=== PATIENT | male | born 1955 | race Caucasian/White ===

== ENCOUNTER 2022-01-11 13:47 | Outpatient (CLI) | payer MEDICARE, BC, SELFPAY ==
[2022-01-11 17:24] LABS: Chloride* 106 mmol/L (96-114); Sodium* 141 mmol/L (135-149)
[2022-01-11 17:25] LABS: Cholesterol* 277 mg/dL (90-199); HDL Cholesterol* 44 mg/dL (>=40); LDL Cholesterol Calculated 188 mg/dL (<100); Triglycerides* 223 mg/dL (40-149)
[2022-01-11 17:27] LABS: Alanine Aminotransferase* 60 U/L (4-50); Blood Urea Nitrogen* 16 mg/dL (7-30); Carbon Dioxide* 23 mmol/L (20-32); Creatinine* 0.9 mg/dL (0.5-1.5); Estimated Glomerular Filt Rate 94.19
[2022-01-11 17:28] LABS: Calcium* 9.6 mg/dL (8.4-10.6); Glucose* 101 mg/dL (60-115)
[2022-01-11 17:57] LABS: PSA Diagnostic* 5.76 ng/mL (0.10-4.00)
== END 2022-01-11 13:48 | disposition home or self-care (01) ==
PROVIDERS: PCP Family Medicine; Visit Provider Family Medicine
DX: N40.0 Benign prostatic hyperplasia without lower urinary tract symptoms (principal); I10 Essential (primary) hypertension; E78.5 Hyperlipidemia, unspecified; F32.9 Major depressive disorder, single episode, unspecified; Z12.5 Encounter for screening for malignant neoplasm of prostate; Z12.11 Encounter for screening for malignant neoplasm of colon
CPT/HCPCS: 80048; 80061; 84153; 84460

== ENCOUNTER 2022-03-22 16:44 | Outpatient (CLI) | payer MEDICARE, BC, SELFPAY ==
--- OUTSIDE RECORDS SUMMARY | 2022-03-22 16:47 | XMS_ITS | Clinical Summary ---
:1955 Author Organization [facility] [place] [address] Care Team Providers Name Role Phone Joseph Badillo MD Primary Care Provider [phone] Allergies Active Allergy Reactions Severity Noted Date Comments Atorvastatin Myalgia 05/14/2007 Medications Medication Sig Dispensed Refills Start Date End Date Status aspirin 81 mg tablet Take 81 mg by 0 Active mouth once daily with a meal. CPAPIndications: FAYE CPAP machine 1 unit 0 12/05/2016 Active (obstructive sleep for home apnea) use,Frequency of use: Daily omeprazole (PRILOSEC) 40 Take 1 capsule 90 capsule 3 8 Active mg Delayed-Release by mouth once capsuleIndications: daily. Gastroesophageal reflux disease without esophagitis rivaroxaban (XARELTO) 20 Take 1 tablet 30 tablet 12 08/11/2018 Active mg tabletIndications: by mouth once Pulmonary embolism, daily with bilateral (HC) evening meal. citalopram (CELEXA) 20 TAKE ONE AND 45 tablet 6 03/01/2019 Active mg tabletIndications: ONE-HALF Dysthymic disorder TABLETS BY MOUTH EVERY DAY NIFEdipine (PROCARDIA Take 1 tablet 30 tablet 0 08/06/2019 Active XL) 60 mg by mouth once Extended-Release daily before a tabletIndications: meal. Hypertension oxybutynin XL (DITROPAN Take 1 tablet 90 tablet 3 05/25/2020 Active XL) 5 mg CR by mouth once tabletIndications: OAB daily. 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 GERD (gastroesophageal reflux disease) 03/30/2009 Hypertension 05/17/2007 Dysthymic disorder 05/17/2007 Hyperlipidemia 05/17/2007 Carpal tunnel syndrome 05/17/2007 Overview: Bilateral Pulmonary emboli Resolved Problems Problem Noted Date Resolved Date Acute renal failure 09/17/2010 03/10/2012 Immunizations Name Administration Dates Next Due AMB Influenza, IIV3 (Age >=3 05/24/2010 years)(Flu Clinic Only) HIB PRP-T (ActHIB,Hiberix) 04/17/2013 Influenza, IIV3 (Age 6-35 mos) 04/25/2015, 05/19/2014, 04/17 Influenza, IIV3 (Age >=3 years) 08/05/2016, 06/16/2012, 05/14, 06/29/2008, 05/14/2007, 06/02/2006, 06/03/2005 Influenza, IIV4 04/29/2018, 08/01/2016, 05/14/2015, 05/19/2014 Influenza, IIV4 (=>6mos) MDV 04/13/2017 Td (Age >=7 Years) 12/26/2009 Tdap 03/11/2010 Zoster (Zostavax-ZVL, live) 06/27/2015, 05/19/2014 Family History Medical History Relation Name Comments Lung cancer Father Hypertension Mother Hypertension Sister Relation Name Status Comments Father Mother Sister Social History Tobacco Use Types Packs/Day Years Used Date Never Smoker Smokeless Tobacco: Never Used Tobacco Cessation: Counseling Given: Yes Alcohol Use Standard Drinks/Week Comments No 0 (1 standard drink = 0.6 oz pure alcoho l) quit in about 1979 Alcohol Habits Answer Date Recorded How often do you have a drink containing alcohol? Not asked How many drinks containing alcohol do you have on a Not aske d typical day when you are drinking? How often do you have six or more drinks on one Not asked occasion? 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 Height 172.7 cm (5' 8) 08/11/2018 10:29 AM MACHINE VENEER REPAIRER Body Mass Index 30.67 08/11/2018 10:29 AM MACHINE 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 Plan of Treatment Health Maintenance Due Date Last Done Comments COVID-19 vaccine series (#1) 1955 Hepatitis C screening for age 0802/23/1973 18-79 Zoster (shingles) series for age 0208/22/2015 06/27/2015, 12/2013 50+ (2 of 3) Colonoscopy through age 75 09/12/2018 09/12/2008, 9 Depression screening for age 12+ 04/23/2019 04/23/2018, 03/2018, 01/16/2018, Additional history exists BMI (ht and wt on same day) for 08/11/2019 08/11/2018, 0712/2017, age 18+ 10/03/2016 Pneumococcal series for age 65+ (1 02/24/2020 - PCV) Tetanus booster 03/11/2020 03/11/2010, 12/26/2009 Influenza for age 65+ 03/14/2022 04/29/2018, 04/13/2017, 08/05/2016, Additional history exists Lipids for age 45-75 01/16/2023 01/16/2018, 10/03/2016, 06/27/2015, Additional history exists Tdap Completed 03/11/2010 Medical Devices Implanted Type Area Slide Maker Device Shelf Model / Identifier Expiration Serial / Lot Date Stent Prcflx [id number] [id number] - [id number] Left: BSC Urol[employer] gy 03/21/2013 [id number] / Implanted: Qty: 1 on 09/18/2010 at [facility] Ureter / [id number] Description: please see implant sheet Results Not on filefrom Last 3 Months Insurance Payer Benefit Plan / Subscriber ID Effective Phone Address T ype Group Dates 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 [id number] 2007-Pre [phone] MONIQUE ON COMP COMP sent [address] [place] [address] BLUE CROSS BLUE CROSS OF [id number] 2018-Prese [address] [facility] [place] [address] Guarantor Name Account Type Relation to Date of Phone Billing Patient Address Bony Egan Personal/Family Self 1955 [address] (Home) [place] [phone] (Work) Bony Egan Workers Comp Self 1955 [address] (Home) [place] [phone] (Work) Advance Directives Documents on File Type Date Recorded Patient Wildlife [employer] Internship Explanati on Healthcare Directive 05/05/2013 8:47 AM [facility] RE DIRECTIVE, 05/04/2013 Latest Code Status on File Code Status Date Activated Date Inactivated Comments Full Code 06/15/2012 3:16 PM 06/16/2012 4:36 PM Full Code 09/26/2010 7:16 AM 09/26/2010 1:55 PM Full Code 09/18/2010 8:26 AM 09/19/2010 5:27 PM Full Code 09/17/2010 5:19 PM 09/18/2010 8:26 AM Full Code 01/20/2010 6:06 AM 01/20/2010 3:18 PM Care Teams Inspector Wreath Relationship Specialty Start Date End Date Joseph Badillo MD PCP - General Family Practice 02/04/19 [address] [place] [phone]
[2022-03-22 17:42] LABS: Chloride* 103 mmol/L (96-114); Potassium* 4.6 mmol/L (3.6-5.1); Sodium* 140 mmol/L (135-149)
[2022-03-22 17:45] LABS: Carbon Dioxide* 23 mmol/L (20-32); Cholesterol* 169 mg/dL (90-199); Creatinine* 1.3 mg/dL (0.5-1.5); Estimated Glomerular Filt Rate 60 ml/min
[2022-03-22 17:46] LABS: Blood Urea Nitrogen* 31 mg/dL (7-30); Calcium* 9.9 mg/dL (8.4-10.6); Glucose* 77 mg/dL (60-115); HDL Cholesterol* 37 mg/dL (>=40); LDL Cholesterol Calculated 66 mg/dL (<100); Triglycerides* 331 mg/dL (40-149)
== END 2022-03-22 16:45 | disposition home or self-care (01) ==
PROVIDERS: PCP Family Medicine; Visit Provider Family Medicine
DX: R53.83 Other fatigue (principal); I10 Essential (primary) hypertension; E78.5 Hyperlipidemia, unspecified
CPT/HCPCS: 80048; 80061; 84443

== ENCOUNTER 2023-03-07 09:59 | Outpatient (CLI) | payer MEDICARE, BC, SELFPAY | END 2023-03-07 10:00 | disposition home or self-care (01) | PROVIDERS: PCP Family Medicine; Visit Provider Family Medicine | DX: Z01.818 Encounter for other preprocedural examination (principal); E78.5 Hyperlipidemia, unspecified; I10 Essential (primary) hypertension; R97.20 Elevated prostate specific antigen [PSA] | CPT/HCPCS: 80048; 80061; 84153; 84460 ==

== ENCOUNTER 2023-03-14 13:42 | Outpatient (RCR) | payer MEDICARE, BC, SELFPAY ==
--- NOTE | 2023-03-14 14:42 | PT.OPEX ---
PT [facility] Out[facility] Eval PT [facility] Outpatient Eval Start: 03/14/23 12:51 Freq: Status: Active Protocol: Document 03/14/23 12:51 STERLINGChari (Rec: 03/14/23 14:40 CLEVESUZETTE [id number]) E-signed By Alberta Collier Physical [facility] Outpatient Evaluation Insurance Information Recert Due Date 06/13/23 Insurance Name Medicare B Medical Diagnosis M17.11 R knee OA Z96.651 Presence of R artificial knee joint Treating Diagnosis M25.561 R knee pain M25.661 Stiffness of R knee Referring MD Elizalde Subjective Subjective Pt presents pre-op only for RTKA on 03/25/[address] Elizalde. Pt reports this is his first joint replacement. L knee also is giving him trouble and anticipates he will get a replacement on his L knee as well. Pt states that pain is worse with over-use. Pain has not prevented him for doing things but it does get achey at the end of the day. His knee pain has slowed him down. Takes Tylenol about 4x/ day. PLOF: IND no AD. Pt lives with spouse in split entry home with 2 steps to enter no railing. Bedroom/bathroom are on second level, rail on R side. Pt has tub shower upstairs and walk in shower downstairs, has grab bars in shower and shower chair, raised toilet seat. Pt has SPC , RW, and 4WW. 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 Elizalde. PMHx: HTN, HLD, pulmonary embolism. Pt reports B knee pain, R>L that is worse with prolonged standing and walking. Takes Tylenol 4x/ day for pain management. Pt lives in split-level home with spouse, 2 steps, no rail to enter. Bedroom/bathroom are on second level, rail on R side. Pt has tub shower upstairs and walk in shower downstairs, has grab bars in shower and shower chair, raised toilet seat. Pt has SPC, RW, and 4WW. Pt displays good strength and ROM in BLEs. Pain is the most limiting factor. Demonstrates mildly antalgic gait pattern. Pt was educated on HEP, POC, post-op precautions, pain/ swelling management, fall prevention, equipment needs, and stair training. Pt will be doing post-op OP PT at [facility] . Primary Functional Limitations Pain with functional activity Gait deficits Plan of Care Rehabilitation Potential Excellent Physical Therapy Goals In one session: 1. Pt will be IND with HEP in order to perform at home post- op IND. 2. Pt will navigate 4 steps with B rails using proper step sequencing in order to enter/ exit home safely post-op. 3. Pt will provide verbal understanding of post-op precautions in order to reduce risk of post-op complications . Coordination/Communication With Referral Source Treatment Plan/Direct Interventions Therapeutic Activities, Therapeutic Exercises Frequency/Duration 1x only Patient Will Be Discharged From Therapy Completion of LTG(s), Independent w/HEP, Independently Progressing Evaluation Billing Untimed Code Treatment Minutes 10 PT Eval No Charge No Complexity Low Certification Information Initial Certification Date 03/14/23 Ending Certification Date 06/13/23 Provider Signature Shows Agreement With POC & Medical Necessity Physician Comment/Change : Physician NPI Number #
== END 2023-07-12 23:59 | disposition home or self-care (01) ==
PROVIDERS: PCP Family Medicine; Visit Provider Orthopaedic Surgery
DX: M17.11 Unilateral primary osteoarthritis, right knee (principal); M25.561 Pain in right knee; Z96.651 Presence of right artificial knee joint; M25.661 Stiffness of right knee, not elsewhere classified; Z51.89 Encounter for other specified aftercare
CPT/HCPCS: 97161; 97530

== ENCOUNTER 2023-03-25 07:02 | Day surgery (SDC) | payer MEDICARE, BC, SELFPAY ==
[2023-03-25] VITALS (36 sets, daily range): BP systolic 97–158; BP diastolic 59–94; PULSE 55–116; RESP 12–18; TEMP 35.9–37.2; O2SAT 91–100; BMI 33.7
[2023-03-25] MEDS: ACETAMINOPHEN 500 MG TABLET 1000 MG PO ×2 (07:27→20:28)
[2023-03-25] MEDS: OXYCODONE (CR) 10 MG TAB.ER.12H PO (07:28)
[2023-03-25] MEDS: SODIUM CHLORIDE 0.9 % (FLUSH) 10 ML SYRINGE IVF (07:28)
[2023-03-25] MEDS: CELECOXIB 200 MG CAPSULE PO (07:28)
[2023-03-25] MEDS: LACTATED RINGERS 1000 ML 1,000 ML 100 ML IV ×2 (07:28→10:39)
[2023-03-25] MEDS: fentaNYL 100 MCG/2 ML inj IVP (09:04)
[2023-03-25] MEDS: MIDAZOLAM HCL 1 MG/ML inj IVP (09:04)
--- NOTE | 2023-03-25 09:13 | P.NB_ITS ---
Nerve Block Nerve Block Time Seen by Provider: 09:08 Date Seen: 03/25/23 Type of block requested by surgeon for post-operative analgesia: adductor canal Side: right Time out performed: Yes Verification of patient name: Yes Verification of date of : Yes Site marking: site marked Name of person performing procedure: Ricardo Continuous monitoring Was continuous monitoring of O2 sat, B/P, teletypesetter monitor, recorded every 15 minutes?: Yes Procedure Checklist: sterile prep, needles and gloves Ultrasound guided. Images saved: Yes Medications given in 5ml increments after negative aspiration: Ropivicaine %: 0.5 mL: 20 Needle gauge: 20 Decadron (mg): 10 Precedex (mcg): 25 Patient tolerated procedure well: Yes Additional comments: Needle noted adjacent to nerve Block Charges Block Charge (with Pro Fee): Femoral Nerve Use of Ultrasound Machine for Block: Yes- US Guidance/pain block
--- NOTE | 2023-03-25 09:13 | W.ANESCHARGE ---
Anesthesia Charges Start Date/Time Anesthesia Start Date: 03/25/23 Anesthesia Start Time: 09:29 Stop Date/Time Anesthesia Stop Date: 03/25/23 Anesthesia Stop Time: 11:36
--- NOTE | 2023-03-25 09:14 | P.NB_ITS ---
Nerve Block Nerve Block Time Seen by Provider: 09:08 Date Seen: 03/25/23 Type of block requested by surgeon for post-operative analgesia: geniculars Side: right Time out performed: Yes Verification of patient name: Yes Verification of date of : Yes Site marking: site marked Name of person performing procedure: Ricardo Continuous monitoring Was continuous monitoring of O2 sat, B/P, monitor car operator, recorded every 15 minutes?: Yes Procedure Checklist: sterile prep, needles and gloves Medications given in 5ml increments after negative aspiration: Ropivicaine %: 0.5 mL: 9 Needle gauge: 25 Patient tolerated procedure well: Yes Block Charges Block Charge (with Pro Fee): Genicular Nerve Block Use of Ultrasound Machine for Block: No
--- NOTE | 2023-03-25 09:17 | SUR.PREOP ---
TIME?OUT:?0903 PT/Gwendolyn Gonzalez RN/Dr. Ricardo MDA?VERIFICATION?OF?SURGICAL?SITE right knee,?PROCEDURE,?AND?CONSENT OBTAINED?PRIOR?TO?INVASIVE?PROCEDURE.
[2023-03-25] MEDS: CEFAZOLIN 2 GM INJ IVP (09:40)
[2023-03-25] MEDS: TRANEXAMIC ACID 100 MG/ML INJ 1000 MG IV (09:45)
--- NOTE | 2023-03-25 10:50 | CRLHL7_ITS ---
For Patients: As a result of the Cures Act, medical imaging exams and procedure reports are released immediately into your electronic medical record. You may view this report before your referring provider. If you have questions, please contact your health care provider. Indication: Postop Technique: Two views right knee Findings/Impression: Hardware from a right total knee arthroplasty is in satisfactory position. Bone alignment is normal. No sign of acute fracture. Postop changes are within normal limits. Dictated by Lan Santos MD @ 03/25/2023 12:02:52 PM (Electronically Signed)
--- NOTE | 2023-03-25 10:53 | PM.ORPRC ---
Procedure Note Date of procedure: 03/25/23 Procedure: PREOPERATIVE DIAGNOSIS: Right knee osteoarthritis POSTOPERATIVE DIAGNOSIS: Right knee osteoarthritis NAME OF OPERATION: Right total knee arthroplasty SURGEON: Calvin Elizalde MD CLINICAL UNIT COORDINATOR: JOSE RAUL Kennedy ANESTHESIA: Spinal ESTIMATED BLOOD LOSS: 0 mL COMPLICATIONS: None SPECIMENS: None DRAINS: None PREOPERATIVE ANTIBIOTICS: Ancef 2 grams IMPLANTS: 1. J&J Attune # 7 posterior stabilized femur 2. # 7 fixed-bearing tibia 3. # 7 posterior stabilized, 8 mm fixed-bearing polyethylene 4. 38 patella INDICATIONS: The patient is a 68-year-old with a longstanding history of severe, unrelenting right knee pain secondary to end-stage (grade IV) right knee osteoarthritis. Despite appropriate nonoperative management, including activity modification, anti-inflammatories, [id number]-[id number] pain medication, bracing, physical therapy, and injections they continue to have pain and disability. Operative intervention was offered. The risks, benefits and expected outcomes were discussed in detail. These included but were not limited to: Infection, bleeding, injury to blood vessel or nerve, venous thromboembolism. All questions were answered to their satisfaction. Use of an dental ceramist assistant was necessary throughout the case for patient positioning and safety, soft tissue retraction, and closure. PROCEDURE: Spinal anesthesia was administered. The patient was placed supine on the operating table. The dental ceramist assistant made sure the patient was positioned appropriately. The lower extremity was prepped and draped in the usual sterile fashion. The limb was exsanguinated with the Derian bandage. The pneumatic tourniquet was inflated to 300 mmHg. A standard anterior incision was made with the knee in flexion. Subcutaneous dissection was sharply taken through fascial layer #1. Full-thickness medial and lateral flaps were elevated. The dental ceramist assistant retracted the soft tissues and protected them throughout the case. A standard medial parapatellar approach was made. The patella was everted. The infrapatellar fat pad was preserved. The menisci and cruciate ligaments were sharply d?brided. Marginal osteophytes were d?brided with the rongeur. The drill was used to penetrate the femoral canal. The canal was aspirated and irrigated with pulse lavage. The intramedullary femoral guide was placed for a 5-degree valgus cut, removing 10 mm off the distal femur. The saw was used to make the cut. Whitesides line and the trans epicondylar axis were marked. The femoral sizing guide was pinned onto the distal femur. Three degrees of external rotation nicely parallels the transepicondylar axis. Pins were placed for posterior referencing. The four-in-one cutting guide was pinned onto the distal femur. The anterior, posterior, and chamfer cuts were made. The dental ceramist assistant protected the collateral ligaments. The box cutting guide was pinned. The box cuts were made. The boxed trial was placed and was an excellent fit. Drill holes for the lugs were made. Attention was then turned to the proximal tibia. The extramedullary tibial guide was placed for a neutral varus/valgus cut with 5 degrees of posterior slope, removing 2 mm based off the medial tibial surface. The dental ceramist assistant protected the collateral ligaments and the neurovascular bundle. The saw was used to make the cut. Trial components were placed. The knee was nicely balanced in both flexion and extension. The trial components were removed. The tray was placed in appropriate rotation, parallel to our tibial cutting pins. It was pinned by the dental ceramist assistant and the drill and the punch were used. The tray was removed. The punch was used again. We placed a bone plug in the femoral canal. Attention was then turned to the patella. Hughes patellar thickness was 24 mm. The lobster claw resection guide was used with the 9.5 mm marielle. The saw was used to make the cut. Drill holes were made by the dental ceramist assistant. The trial was placed and was an excellent fit. Cancellous surfaces were irrigated with pulse lavage and thoroughly dried by the dental ceramist assistant. We cemented the tibial component, then the femoral component. We impacted the 8 mm polyethylene onto the tibial tray. The knee was brought into full extension. We then cemented the patellar component. Excessive cement was removed. The cement was allowed to harden. The knee was taken through a range of motion and was found to be nicely balanced in both flexion and extension. The patella tracks centrally. The dental ceramist assistant did a three minute dilute Betadine solution soak. The dental ceramist assistant irrigated the wound with 3 liters of normal saline via pulse lavage. The dental ceramist assistant reapproximated the extensor mechanism with #1 Vicryl in an interrupted [id number] fashion. The dental ceramist assistant then ran the extensor mechanism with a #1 PDO Stratafix. The dental ceramist assistant closed the subcutaneous tissues with a 3-0 Stratafix and the skin with a running 3-0 Stratafix in a subcuticular fashion. Glue was used to seal the skin. The dental ceramist assistant placed a dry dressing, LUIS stocking, and Polar Care. Sponge and needle counts were correct x2. The patient tolerated the procedure well. There were no apparent complications. They were carefully transferred to the hospital bed and taken to the postanesthesia care unit in satisfactory condition. PLAN: The patient will be mobilized with physical therapy. Given the patient's history of pulmonary embolism, Xarelto will be used for DVT prophylaxis. They will be discharged to home once medically appropriate.
--- NOTE | 2023-03-25 11:37 | W.ANESCHARGE ---
Anesthesia Charges Start Date/Time Anesthesia Start Date: 03/25/23 Anesthesia Start Time: 09:29 Stop Date/Time Anesthesia Stop Date: 03/25/23 Anesthesia Stop Time: 11:36
[2023-03-25] MEDS: HYDROmorphone 0.5 mg/0.5 ml inj IVP (13:14)
[2023-03-25] MEDS: OXYCODONE 5 MG TABLET PO ×3 (15:39→21:30)
--- NOTE | 2023-03-25 15:39 | PC.NURSE ---
Patient up to floor at 1210. Alert and oriented x4, at bedside. Patient rated pain 4/10 PRN dilauded administered w/relief. Tolerating a reg diet, dangle at bedside but not up to BR yet. IV in left wrist patent. Plexi pulses, Bilateral teds, and cryocuff to op site. Dressing to right knee C/D/I
--- NOTE | 2023-03-25 16:12 | P.IMCN_ITS ---
Date of Consult Patient: [facility] Patient Consult date: 03/25/23 Requesting Physician: Orthopedics Primary Care Provider: Lan Perry MD Consult Narrative Reason for consult: h/o unprovoked PE, HTN, FAYE - post-op R TKA Narrative: Bony Egan is a 68 year old man underwent an elective right total knee arthroplasty today due to severe, symptomatic right gonarthrosis. Procedure undertaken successfully without any apparent complications. Patient underwent a local MAC with nerve blocks. He did not received general anesthesia and was not on a ventilator. Surgeon reports estimated blood loss as 0 mL. Patient indicates he is feeling well. Still does not have function of his quadriceps muscles. Pain adequately modified. Review of Systems Status of ROS: Reports: 10 or more systems reviewed and unremarkable except as noted in History and below Narrative: Denies chest heaviness, pressure, tightness, or pain. Denies syncope or near- syncope. Denies orthostasis, lightheadedness, dizziness, vertigo. Denies palpitations or chest fluttering. Denies cough, dyspnea at rest, paroxysmal nocturnal dyspnea, orthopnea. Denies edema. Denies claudication. Denies nausea vomiting. Denies abdominal pain. Bowel and bladder function are satisfactory. Denies dysuria, urgency, frequency, hematuria. Denies diarrhea or constipation. Denies dyspepsia, heartburn, dysphagia, or odynophagia. [facility] Medical History (Updated 03/25/23 @ 16:21 by Burt Black MD) History of pulmonary embolism (08/08/18) ?Z86.711 - Personal history of pulmonary embolism (ICD-10) Osteoarthritis of right knee ?M17.11 - Unilateral primary osteoarthritis, right knee (ICD-10) Major depression, recurrent ?F33.9 - Major depressive disorder, recurrent, unspecified (ICD-10) Stricture of urethral meatus in male (11/04/07) ?N35.911 - Unspecified urethral stricture, male, meatal (ICD-10) Overactive bladder ?N32.81 - Overactive bladder (ICD-10) Obstructive sleep apnea syndrome ?G47.33 - Obstructive sleep apnea (adult) (pediatric) (ICD-10) Incidental pulmonary nodule (08/08/18) ?R91.1 - Solitary pulmonary nodule (ICD-10) Hypertension ?I10 - Essential (primary) hypertension (ICD-10) Hyperlipidemia ?E78.5 - Hyperlipidemia, unspecified (ICD-10) Glaucoma of right eye (2019) ?H40.9 - Unspecified glaucoma (ICD-10) Gastroesophageal reflux disease ?K21.9 - Gastro-esophageal reflux disease without esophagitis (ICD-10) Calculus of kidney (08/24/08) ?N20.0 - Calculus of kidney (ICD-10) Bilateral carpal tunnel syndrome (2006) ?G56.03 - Carpal tunnel syndrome, bilateral upper limbs (ICD-10) Benign prostatic hyperplasia ?N40.0 - Benign prostatic hyperplasia without lower urinary tract symptoms (ICD-10) Surgical History (Updated 03/25/23 @ 16:21 by Burt Black MD) History of tonsillectomy and adenoidectomy ?Z90.89 - Acquired absence of other organs (ICD-10) History of lumbar discectomy (10/17/09) ?Z98.890 - Other specified postprocedural states (ICD-10) History of lithotripsy (08/24/08) ?Z98.890 - Other specified postprocedural states (ICD-10) History of appendectomy (06/04/79) ?Z90.49 - Acquired absence of other specified parts of digestive tract (ICD- 10) Family History Sister Stroke Father Lung cancer Social History Narrative: , remarried, two sons, non-smoker, no EtOH, [place] home What is your current living situation?: I presently have a place to live Problems where you live: no known problems In the past 12 months, utilities in danger of being shut off: no In the past 12 mos, have been you worried that your food would run out before you had money to buy more?: never true In the past 12 mos, the food you bought just didn't last and you didn't have money to buy more?: never true Smoking Status: Never smoker Do you use any of these nicotine containing products: None How often do you have a drink containing alcohol: never AUDIT-C Alcohol total score: 0 Non-prescribed substance use: denies use Caffeine: No How often does anyone, including family, friends and others, physically hurt you : never How often does anyone, including family, friends and others, insult or talk down to you: never How often does anyone, including family, friends and others, threaten you with harm: never How often does anyone, including family, friends and others, scream or curse at you: never Little interest or pleasure in doing things: not at all Feeling down, depressed, or hopeless: not at all service: No Meds Home Medications and Allergies Home Medications Medication Instructions Recorded Confirmed Type aspirin 81 mg chewable tablet 1 tab PO DAILY 01/11/22 03/25/23 History Allergies Allergy/AdvReac Type Severity Reaction Status Date / Time TRISTON Inhibitors AdvReac Mild Cough Verified 03/25/23 07:30 Exam Narrative: Exam Narrative: I examine him in his hospital room. He appears comfortable and in no acute distress. Vision and hearing are grossly normal. Alert and oriented to self, place, time, situation. Friendly, articulate, cooperative. Mood and affect are congruent. Neck is supple. Midline trachea. No JVD or hepatojugular reflux. Lungs are clear to auscultation without wheezing, rhonchi, or rales. Chest wall excursions are full. No CVA tenderness. Heart tones with regular rhythm, normal S1-S2, without murmur, gallop, rub. PMI not laterally displaced. Abdomen with active bowel sounds, soft, nontender. No rebound or guarding. No hepatosplenomegaly. Extremities without edema. Capillary refill less than 3 seconds in upper and lower extremities. No focal motor neurologic deficits. Independent transfer, station. Still not able to urinate postop. Const: Vital Signs, click to edit/add: Vital Signs - 24 hr 03/25/23 07:35 03/25/23 09:04 03/25/23 09:10 Temperature 98.9 F Pulse Rate 61 63 64 Pulse Rate [Left P ulse Oximeter] Respiratory Rate 16 16 14 Blood Pressure 158/84 H 156/92 H 132/87 Blood Pressure [Ri ght Arm] Pulse Oximetry 98 99 94 Oxygen Delivery Me thod Room Air Nasal Cannula Nasal Cannula Oxygen Flow Rate 2 2 03/25/23 11:32 03/25/23 11:34 03/25/23 11:35 Temperature 97.5 F L Pulse Rate 74 68 66 Pulse Rate [Left P ulse Oximeter] Respiratory Rate Blood Pressure 97/59 L Blood Pressure [Ri ght Arm] Pulse Oximetry 93 94 94 Oxygen Delivery Me thod Room Air Oxygen Flow Rate 03/25/23 11:36 03/25/23 11:37 03/25/23 11:38 Temperature Pulse Rate 65 62 65 Pulse Rate [Left P ulse Oximeter] Respiratory Rate Blood Pressure Blood Pressure [Ri ght Arm] Pulse Oximetry 93 93 93 Oxygen Delivery Me thod Oxygen Flow Rate 03/25/23 11:39 03/25/23 11:40 03/25/23 11:41 Temperature Pulse Rate 65 66 63 Pulse Rate [Left P ulse Oximeter] Respiratory Rate Blood Pressure Blood Pressure [Ri ght Arm] Pulse Oximetry 92 93 93 Oxygen Delivery Me thod Oxygen Flow Rate 03/25/23 11:42 03/25/23 11:43 03/25/23 11:44 Temperature Pulse Rate 59 L 61 60 Pulse Rate [Left P ulse Oximeter] Respiratory Rate Blood Pressure 98/59 L Blood Pressure [Ri ght Arm] Pulse Oximetry 93 92 92 Oxygen Delivery Me thod Oxygen Flow Rate 03/25/23 11:45 03/25/23 11:46 03/25/23 11:47 Temperature Pulse Rate 64 61 61 Pulse Rate [Left P ulse Oximeter] Respiratory Rate Blood Pressure 97/66 Blood Pressure [Ri ght Arm] Pulse Oximetry 91 93 95 Oxygen Delivery Me thod Room Air Oxygen Flow Rate 03/25/23 11:48 03/25/23 11:50 03/25/23 11:55 Temperature Pulse Rate 61 62 61 Pulse Rate [Left P ulse Oximeter] Respiratory Rate 16 12 Blood Pressure 117/75 122/80 Blood Pressure [Ri ght Arm] Pulse Oximetry 94 94 97 Oxygen Delivery Me thod Room Air Room Air Oxygen Flow Rate 03/25/23 12:00 03/25/23 12:10 03/25/23 12:15 Temperature 96.9 F L 96.9 F L Pulse Rate 65 Pulse Rate [Left P ulse Oximeter] 55 L 55 L Respiratory Rate 12 16 16 Blood Pressure 123/82 Blood Pressure [Ri ght Arm] 123/73 123/73 Pulse Oximetry 98 100 Oxygen Delivery Me thod Room Air Room Air Room Air Oxygen Flow Rate 03/25/23 12:30 03/25/23 12:45 03/25/23 12:55 Temperature 96.6 F L 96.9 F L 96.9 F L Pulse Rate Pulse Rate [Left P ulse Oximeter] 56 L 56 L 55 L Respiratory Rate 16 16 16 Blood Pressure Blood Pressure [Ri ght Arm] 126/76 127/81 123/73 Pulse Oximetry 98 97 95 Oxygen Delivery Me thod Room Air Room Air Room Air Oxygen Flow Rate 03/25/23 13:00 03/25/23 13:30 03/25/23 13:57 Temperature 96.9 F L 96.9 F L 96.9 F L Pulse Rate 55 L Pulse Rate [Left P ulse Oximeter] 58 L 66 Respiratory Rate 16 16 16 Blood Pressure Blood Pressure [Ri ght Arm] 134/81 141/86 H 123/73 Pulse Oximetry 98 98 Oxygen Delivery Me thod Room Air Room Air Room Air Oxygen Flow Rate 03/25/23 14:00 03/25/23 15:00 Temperature 96.9 F L 97.3 F L Pulse Rate Pulse Rate [Left P ulse Oximeter] 66 64 Respiratory Rate 16 18 Blood Pressure Blood Pressure [Ri ght Arm] 132/81 143/84 H Pulse Oximetry 98 98 Oxygen Delivery Me thod Room Air Room Air Oxygen Flow Rate Documenting provider has reviewed patient's vital signs: yes Assessment and Plan Assessment and plan (1) Osteoarthritis of right knee: Problem comment: End-stage Status: Acute (2) Status post total right knee replacement: Problem comment: 03/25/2023, Dr. Elizalde, [place], [place]. Status: Acute (3) Osteoarthritis of left knee: Status: Acute (4) Major depression, recurrent: Status: Acute (5) Glaucoma of right eye: Status: Acute (6) Gastroesophageal reflux disease: Status: Acute (7) Bilateral carpal tunnel syndrome: Status: Acute (8) Benign prostatic hyperplasia: Status: Acute (9) Hyperlipidemia: Status: Acute (10) Hypertension: Status: Acute (11) Obstructive sleep apnea syndrome: Problem comment: On CPAP Status: Acute (12) History of pulmonary embolism: Problem comment: Unprovoked, while working - occurred about 2018. Tx with 6 months anticoagulant. Status: Acute (13) Overactive bladder: Status: Acute Plan 1. Reviewed impression with patient and . Answered their questions. Hospitalist service will follow patient while in hospital as warranted. 2. Agree with perioperative antibiotic prophylaxis. 3. With high risk procedure and his high risk status given his history of unprovoked pulmonary embolism roughly 5 years ago, this is someone who will require rivaroxaban therapy for a minimum of 14 days. May stop it at 14 days if he is fully ambulatory at that time. Continue with rivaroxaban venous thromboembolism prophylaxis to a maximum of 35 days, or until fully ambulatory, whichever is less. 4. Continue with other supportive medications 5. Completed the patient's hospitalist portion of the discharge orders. 6. Follow up with Orthopedic surgery and Physical and Occupational therapy as directed by Orthopedic surgery. 7. Answered patient's questions and his 's questions to their satisfaction.
[2023-03-25] MEDS: CEFAZOLIN 2 GM in 0.9 % SODIUM CHLORIDE Mini-bag 100 ML IVPB (17:45)
--- NOTE | 2023-03-25 19:20 | PC.NURSE ---
Patient buckling when ambulating. Stand pivot to bedside commode with walker, gait belt and assist of two. Tolerating regular diet. Pain between 3-5/10. PRN oxycodone given at 1539 and 1915. Patient not voiding on own. Attempted to void in urinal x3 and bedside commode once. At 1700 bladder scanner showed 559mL urine. Patient reported bladder discomfort and requested straight cath before eating supper. 750mL urine drained via straight cath. He reported feeling relief.
[2023-03-25] MEDS: SENNOSIDES 1 TAB TABLET 2 TAB PO (20:33)
--- NOTE | 2023-03-25 23:35 | PC.NURSE ---
End of shift nursing note, care provided from [id number]: Pt alert and oriented, pleasant and cooperative. Vitals stable, on RA. C/o 4-5/10 pain to R knee, scheduled Tylenol and PRN Oxycodone 10mg admin. Pt tolerating diet, drinking PO fluids. IV to L hand flushed and saline locked. Pt req Ax2 w/ walked and gaitbelt to get to commode d/t pt's R knee buckling when standing. Pt voided at end of shift, partial incontinence, unable to measure, pt states relief with void. Cryo cuff to R knee, refilled this evening. Pulses intact. Dressing to R knee CDI. Pt has call light within reach and able to use appropriately.
[2023-03-26] MEDS: OXYCODONE 5 MG TABLET PO ×3 (01:09→08:21)
[2023-03-26] MEDS: CEFAZOLIN 2 GM in 0.9 % SODIUM CHLORIDE Mini-bag 100 ML IVPB (01:10)
[2023-03-26] MEDS: ACETAMINOPHEN 500 MG TABLET 1000 MG PO ×2 (01:17→08:20)
[2023-03-26 03:00] VITALS: BP 134/84; PULSE 93; RESP 16; TEMP 37.1; O2SAT 94
--- NOTE | 2023-03-26 06:01 | PC.NURSE ---
Shift note: Pt has been up to bedside commode and used urinal. Able urinate about 450mls tonight. Alert and oriented. Tolerated regular diet without any symptoms. Vitally stable Pain has been rated between 4 and 10. CMS in the right leg intact, moderate weakness observed. Dressing clean and dry. Pt used CPAP at night. Able to sleep well.
[2023-03-26] MEDS: OMEPRAZOLE 20 MG CAPSULE DR 40 MG PO (06:40)
[2023-03-26 06:48] LABS: Basophils Percent Auto 0.1 % (0.0-3.0); Hematocrit 39.8 % (37.0-53.0); Hemoglobin* 13.7 gm/dL (13.5-17.5); Immature Granulocytes Pct Auto 0.2 %; Lymphocytes Percent Auto 11.7 % (20-44); Mean Corpuscular HGB Conc 34 gm/dL (32-36); Mean Corpuscular Hemoglobin 30 pg (26-34); Mean Corpuscular Volume 88 fL (80-100); Monocytes Percent Auto 6.4 % (0.0-11.0); Neutrophils Percent Auto 81.6 % (42.0-72.0); Platelet Count* 271 K/uL (140-440); Red Blood Count 4.51 m/uL (4.30-5.90); White Blood Count* 17.62 K/uL (4.50-11.00)
[2023-03-26 07:03] LABS: Sodium* 139 mmol/L (135-149)
[2023-03-26 07:05] LABS: INR 1.06 (0.91-1.10); Prothrombin Time 14.4 Seconds
[2023-03-26 07:06] LABS: Blood Urea Nitrogen* 27 mg/dL (7-30); Creatinine* 1.1 mg/dL (0.5-1.5); Est. Creatinine Clearance* 62.18; Estimated Glomerular Filt Rate 73 ml/min
[2023-03-26 07:07] LABS: Slide Review Reflex No
[2023-03-26 07:34] VITALS: BP 139/91; PULSE 69; RESP 18; TEMP 36.7; O2SAT 98
[2023-03-26] MEDS: hydroCHLOROthiazide 25 MG TABLET PO (08:21)
[2023-03-26] MEDS: ATORVASTATIN 10 MG TABLET 20 MG PO (08:21)
[2023-03-26] MEDS: RIVAROXABAN 10 MG TABLET PO (08:21)
[2023-03-26] MEDS: LOSARTAN POTASSIUM 50 MG TABLET 100 MG PO (08:22)
[2023-03-26] MEDS: AMLODIPINE 5 MG TABLET PO (08:22)
[2023-03-26] MEDS: SENNOSIDES 1 TAB TABLET 2 TAB PO (08:22)
--- NOTE | 2023-03-26 10:01 | P.ORPN_ITS ---
Subjective Subjective Time Seen by Provider: 07:30 Date Seen: 03/26/23 Principal diagnosis: Status post right knee replacement Interval history: Bony is comfortable this morning. His knee was buckling yesterday. He can tell he has improvement, have however has not been up and walking except to the bedside commode. He also has had urinary retention which is resolving as well. He has a history of pulmonary embolism in 2019. Ortho Exam Narrative Exam Narrative: Alert and oriented x3. Patient is in no acute distress. Converses without labored breathing. Hearing is grossly intact. He is comfortable. Examination of the right lower extremity shows the dressing is intact. Mild effusion. Mild soft tissue edema about the right knee. Bilateral calves are soft and nontender. No foot drop. Quad strength tested in his bed lying down this morning shows good quad strength. He is able to straight leg raise. He is able to force his knee into the bed with quad contraction. Const Vital Signs, click to edit/add: Vital Signs - 24 hr 03/25/23 11:32 03/25/23 11:34 03/25/23 11:35 Temperature 97.5 F L Pulse Rate 74 68 66 Pulse Rate [Left Pulse Oximeter] Respiratory Rate Blood Pressure 97/59 L Blood Pressure [Right Arm] Pulse Oximetry 93 94 94 Oxygen Delivery Method Room Air 03/25/23 11:36 03/25/23 11:37 03/25/23 11:38 Temperature Pulse Rate 65 62 65 Pulse Rate [Left Pulse Oximeter] Respiratory Rate Blood Pressure Blood Pressure [Right Arm] Pulse Oximetry 93 93 93 Oxygen Delivery Method 03/25/23 11:39 03/25/23 11:40 03/25/23 11:41 Temperature Pulse Rate 65 66 63 Pulse Rate [Left Pulse Oximeter] Respiratory Rate Blood Pressure Blood Pressure [Right Arm] Pulse Oximetry 92 93 93 Oxygen Delivery Method 03/25/23 11:42 03/25/23 11:43 03/25/23 11:44 Temperature Pulse Rate 59 L 61 60 Pulse Rate [Left Pulse Oximeter] Respiratory Rate Blood Pressure 98/59 L Blood Pressure [Right Arm] Pulse Oximetry 93 92 92 Oxygen Delivery Method 03/25/23 11:45 03/25/23 11:46 03/25/23 11:47 Temperature Pulse Rate 64 61 61 Pulse Rate [Left Pulse Oximeter] Respiratory Rate Blood Pressure 97/66 Blood Pressure [Right Arm] Pulse Oximetry 91 93 95 Oxygen Delivery Method Room Air 03/25/23 11:48 03/25/23 11:50 03/25/23 11:55 Temperature Pulse Rate 61 62 61 Pulse Rate [Left Pulse Oximeter] Respiratory Rate 16 12 Blood Pressure 117/75 122/80 Blood Pressure [Right Arm] Pulse Oximetry 94 94 97 Oxygen Delivery Method Room Air Room Air 03/25/23 12:00 03/25/23 12:10 03/25/23 12:15 Temperature 96.9 F L 96.9 F L Pulse Rate 65 Pulse Rate [Left Pulse Oximeter] 55 L 55 L Respiratory Rate 12 16 16 Blood Pressure 123/82 Blood Pressure [Right Arm] 123/73 123/73 Pulse Oximetry 98 100 Oxygen Delivery Method Room Air Room Air Room Air 03/25/23 12:30 03/25/23 12:45 03/25/23 12:55 Temperature 96.6 F L 96.9 F L 96.9 F L Pulse Rate Pulse Rate [Left Pulse Oximeter] 56 L 56 L 55 L Respiratory Rate 16 16 16 Blood Pressure Blood Pressure [Right Arm] 126/76 127/81 123/73 Pulse Oximetry 98 97 95 Oxygen Delivery Method Room Air Room Air Room Air 03/25/23 13:00 03/25/23 13:30 03/25/23 13:57 Temperature 96.9 F L 96.9 F L 96.9 F L Pulse Rate 55 L Pulse Rate [Left Pulse Oximeter] 58 L 66 Respiratory Rate 16 16 16 Blood Pressure Blood Pressure [Right Arm] 134/81 141/86 H 123/73 Pulse Oximetry 98 98 Oxygen Delivery Method Room Air Room Air Room Air 03/25/23 14:00 03/25/23 15:00 03/25/23 15:00 Temperature 96.9 F L 97.3 F L Pulse Rate Pulse Rate [Left Pulse Oximeter] 66 64 Respiratory Rate 16 18 Blood Pressure Blood Pressure [Right Arm] 132/81 143/84 H Pulse Oximetry 98 98 97 Oxygen Delivery Method Room Air Room Air 03/25/23 16:00 03/25/23 17:00 03/25/23 18:00 Temperature 97.5 F L 98.1 F Pulse Rate Pulse Rate [Left Pulse Oximeter] 76 86 103 H Respiratory Rate 18 16 16 Blood Pressure Blood Pressure [Right Arm] 139/81 145/90 H 152/93 H Pulse Oximetry 97 96 98 Oxygen Delivery Method Room Air Room Air Room Air 03/25/23 23:00 03/25/23 23:00 03/25/23 23:00 Temperature 98.9 F Pulse Rate Pulse Rate [Left Pulse Oximeter] 116 H 114 H Respiratory Rate 16 Blood Pressure Blood Pressure [Right Arm] 122/94 H Pulse Oximetry 96 96 Oxygen Delivery Method Room Air 03/26/23 03:00 03/26/23 07:34 03/26/23 07:34 Temperature 98.7 F 98.0 F Pulse Rate Pulse Rate [Left Pulse Oximeter] 93 69 Respiratory Rate 16 18 Blood Pressure Blood Pressure [Right Arm] 134/84 139/91 H Pulse Oximetry 94 98 98 Oxygen Delivery Method Room Air Room Air Assessment and Plan Assessment and plan (1) Status post total right knee replacement: Problem details: 03/25/2023, Dr. Elizalde, [place], [place]. Status: Acute Assessment and Plan: Plan for discharge is today to home if they meet discharge criteria. Physical therapy to mobilize patient today and further evaluate quad functioning. DVT prophylaxis includes Xarelto 10 mg for 35 days, Godwin stockings x1 month may remove for 1 hr per day, frequent ambulation. Hospitalist suggest at least 14 days of Xarelto. His PEs were unprovoked, therefore we will plan 35 days of Xarelto. Remove dressing in 1 week. Observe wound and phone Orthopedics with any questions or concerns Return to clinic in 1 week for a wound check Return to clinic in 6 weeks with surgeon Minimize narcotic use. Wean off and discontinue soon as possible. Activities as tolerated. No strenuous activity. Outpatient physical therapy as scheduled. Ice and elevate the operative extremity. No restriction on ice. (2) Osteoarthritis of left knee: Status: Acute (3) Major depression, recurrent: Status: Acute (4) Glaucoma of right eye: Status: Acute (5) Gastroesophageal reflux disease: Status: Acute (6) Bilateral carpal tunnel syndrome: Status: Acute (7) Benign prostatic hyperplasia: Status: Acute (8) Hyperlipidemia: Status: Acute (9) Hypertension: Status: Acute (10) Obstructive sleep apnea syndrome: Problem details: On CPAP Status: Acute (11) History of pulmonary embolism: Problem details: Unprovoked, while working - occurred about 2017. Tx with 6 months anticoagulant. Status: Acute (12) Overactive bladder: Status: Acute
--- NOTE | 2023-03-26 11:53 | PC.NURSE ---
Pt alert and oriented. Pt's dressing dry and intact. Pt had pain ranging from 0-3. Pt discharging home with .
== END 2023-03-26 11:36 | disposition home or self-care (01) ==
LOC: OR 07:04 → MEDSURG 07:06
PROVIDERS: PCP Family Medicine; Visit Provider Orthopaedic Surgery
PROC: (CPT 27447; principal; 2023-03-25 09:00)
DX: M17.11 Unilateral primary osteoarthritis, right knee (principal); G89.18 Other acute postprocedural pain; I10 Essential (primary) hypertension; G47.33 Obstructive sleep apnea (adult) (pediatric); Z86.711 Personal history of pulmonary embolism; N32.81 Overactive bladder; F33.9 Major depressive disorder, recurrent, unspecified
CPT/HCPCS: 27447; 01402; 36415; 51702; 51798; 64447; 64454; 73560; 76942; 82565; 84132; 84295; 84520; 85025; 85610; 97110; 97116; 97161; 97165; 97530; 97535; A9270; C1776; J0690; J1100; J1170; J2250; J2405; J2704; J2795; J3010; J7120

== ENCOUNTER 2023-06-30 13:03 | Outpatient (CLI) | payer MEDICARE, BC, SELFPAY ==
[2023-06-30 15:31] LABS: C Reactive Protein* 0.7 mg/dL (0.5-1.0)
[2023-06-30 16:00] LABS: Mononuclear WBC Body Fluid* 93 %; Polynuclear WBC Body Fluid* 7 %; RBC, Body Fluid* 6000 Cells/uL; WBC, Body Fluid* 330 Cells/uL
[2023-06-30 16:12] LABS: BF Color Xanthochromic; BF Total Volume* 12
[2023-06-30 16:13] LABS: BF Clarity* Slightly Cloudy
== END 2023-06-30 13:04 | disposition home or self-care (01) ==
PROVIDERS: PCP Family Medicine; Visit Provider Physician Assistant
DX: M25.461 Effusion, right knee (principal)
CPT/HCPCS: 85025; 85651; 86140; 86141; 87070; 87075; 87205; 89051; 89060

== ENCOUNTER 2023-07-24 10:18 | Outpatient (CLI) | payer MEDICARE, BC, SELFPAY ==
--- OUTSIDE RECORDS SUMMARY | 2023-07-24 10:26 | XMS_ITS | Clinical Summary ---
Author Name Unknown Organization [employer] [facility] Address [place], [place] [address] Care Team Providers Care Terminologist Name Role Phone Joseph Badillo MD Primary Care Provider Allergies Active Allergy Reactions Criticality Noted Date Comments Atorvastatin Myalgia 05/14/2007 Medications Medication Sig Dispensed Refills Start Date End Date Status aspirin 81 mg tablet Take 81 mg by mouth once daily with a meal. 0 Active CPAPIndications:FAYE (obstructive sleep apnea) CPAP machine for home use,Frequency of use: Daily 1 unit 0 12/05/2016 Active omeprazole (PRILOSEC) 40 mg Delayed-Release capsuleIndications:Ga stroesophageal reflux disease without esophagitis Take 1 capsule by mouth once daily. 90 capsule 3 06/04/2018 Active rivaroxaban (XARELTO) 20 mg tabletIndications:Pul monary embolism, bilateral (HC) Take 1 tablet by mouth once daily with evening meal. 30 tablet 12 08/11/2018 Active citalopram (CELEXA) 20 mg tabletIndications:Dys thymic disorder TAKE ONE AND ONE-HALF TABLETS BY MOUTH EVERY DAY 45 tablet 6 03/01/2019 Active NIFEdipine (PROCARDIA XL) 60 mg Extended-Release tabletIndications:Hyp ertension Take 1 tablet by mouth once daily before a meal. 30 tablet 0 08/06/2019 Active oxybutynin XL (DITROPAN XL) 5 mg CR tabletIndications:OAB (overactive bladder) Take 1 tablet by mouth once daily. 90 tablet 3 05/25/2020 Active Active Problems Problem Noted Date Diagnosed Date Lung nodule 07/14/2018 Chest pain with moderate risk of acute coronary syndrome 06/15/2012 Obstructive sleep apnea 03/15/2012 Nephrolithiasis 09/17/2010 Lumbar disc herniation with radiculopathy 2009 GERD (gastroesophageal reflux disease) 9 Hypertension 05/17/2007 Dysthymic disorder 05/17/2007 Hyperlipidemia 05/17/2007 Carpal tunnel syndrome 05/17/2007 Overview: Bilateral Pulmonary emboli Resolved Problems Problem Noted Date Diagnosed Date Resolved Date Acute renal failure 09/17/2010 03/10/20 12 Encounters Date Type Department Care Team Description 07/01/2023 Lab Requisition [facility] [phone] Unknown, Doctor from Last 3 Months Immunizations Name Administration Dates Next Due AMB Influenza, IIV3 (Age >=3 years)(Flu Clinic Only) 05/24/2010 HIB PRP-T (ActHIB,Hiberix) 04/17/2013 Influenza, IIV3 (Age 6-35 mos) 04/25/2015,2013,04/17/2013 Influenza, IIV3 (Age >=3 years) 08/05/19 17,06/16/2012,05/24/2010, 8,05/14/2007,06/02/2006,06/03/2005 Influenza, IIV4 04/29/2018, 7,05/14/2015, 4 Influenza, IIV4 (=>6mos) MDV 04/13/2017 Td (Age >=7 Years) 12/26/2009 Tdap 03/11/2010 Zoster (Zostavax-ZVL, live) 06/27/2015, 4 Family History Medical History Relation Name Comments Lung cancer Father Hypertension Mother Hypertension Sister Relation Name Status Comments Father Mother Sister Social History Tobacco Use Types Packs/Day Years Used Date Smoking Tobacco: Never Smokeless Tobacco: Never Tobacco Cessation:Counseling Given: Yes Alcohol Use Standard Drinks/Week Comments No 0 (1 standard drink = 0.6 oz pur e alcohol) quit in about 1979 PHQ-2 Answer Date Recorded PHQ-2 Score 0 09/12/2018 Sex and Gender Information Value Date Recorded Sex Assigned at Not on file Gender Identity Not on file Sexual Orientation Not on file Obstetrics History Last Filed Vital Signs Vital Sign Reading Time Taken Comments Blood Pressure 118/68 08/11/2018 10:29 AM COMPLIANCE NURSE Pulse 72 08/11/2018 10:29 AM COMPLIANCE NURSE Temperature 36.1 ??C (97 ??F) 08/11/2018 10: 29 AM COMPLIANCE NURSE Respiratory Rate 20 08/11/2018 10:2 9 AM COMPLIANCE NURSE Oxygen Saturation 98% 08/11/2018 10: 29 AM COMPLIANCE NURSE Inhaled Oxygen Concentration - - Weight 91.5 kg (201 lb 11.2 oz) 019 10:29 AM COMPLIANCE NURSE Height 172.7 cm (5' 8) 08/11/2018 10:2 9 AM COMPLIANCE NURSE Body Mass Index 30.67 08/11/2018 10:29 AM COMPLIANCE NURSE Plan of Treatment Health Maintenance Due Date Last Done Comments COVID-19 vaccine series (#1) 1955 Hepatitis C screening for ag e 18-79 1973 Zoster (shingles) series for age 50+ (2 of 3) 08/22/2015 06/27/2015, 05/19/2014 Colonoscopy through age 75 09/12/2018 09/12/2008, Depression screening for age 12+ 04/23/2019 04/23/2018, 02/19/2018, 01/16/2018, Additional history exists BMI (ht and wt on same day) for age 18+ 08/11/2019 08/11/2018, 01/16/2018, 10/03/2016 Pneumococcal series for age 65+ (1 of 1 - PCV) 02/24/2020 Tetanus booster 03/11/2020 03/11/2010, 12/26/2009 Lipids for age 45-75 01/16/2023 01/16/2018, 10/03/2016, 06/27/2015, Additional history exists Influenza for age 65+ 03/14/2023 04/29/2018 , 04/13/2017, 08/05/2016, Additional history exists Tdap Completed 03/11/2010 Medical Devices Implanted Type Area Chartered Financial Analyst Device Identifier Shelf Expiration Date Model / Serial / Lot Stent Prcflx [id number] Hydpls - [id number] Implanted:Qty: 1 on 09/18/2010 at [facility] Left: Ureter BS Urology 03/21/2013 [id number] / / [id number] Description:please see impla nt sheet Procedures Procedure Name Priority Date/Time Associated Diagnosis Comments CRYSTAL ID BODY FLUID NO URINE Routine 06/30/2023 1:38 PM COMPLIANCE NURSE from Last 3 Months Results * CRYSTAL ID BODY FLUID NO URINE (06/30/2023 1:38 PM COMPLIANCE NURSE) MONOSODIUM URATES None Seen None Seen, Present, Not Present 07/02/2023 8:23 AM COMPLIANCE NURSE [facility] CALCIUM PYROPHOSPHATES None Seen None Seen, Present, Not Present 07/02/2023 8:23 AM COMPLIANCE NURSE [facility] OTHER CRYSTALS 07/02/2023 8:23 AM COMPLIANCE NURSE [facility] SPECIMEN SOURCE Body fluid 07/02/2023 8:23 AM COMPLIANCE NURSE [facility] Body Fluid BODY FLUID SPECIMEN / Unknown Client Collect / Unknown 06/30/2023 1:38 PM COMPLIANCE NURSE 07/01/2023 3:43 PM COMPLIANCE NURSE Doctor Unknown BODY FLUID [facility] [address] 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 Healthcare Directive 05/05/2013 8:47 AM H EALTHCARE DIRECTIVE, 05/04/2013 Latest Code Status on File Code Status Date Activated Date Inactivated Comments Full Code 06/15/2012 3:16 PM 06/16/2012 4:36 PM Code Status History Code Status Date Activated Date Inactivated Comments Full Code 09/26/2010 7:16 AM 09/26/2010 1:55 PM Full Code 09/18/2010 8:26 AM 09/19/2010 5:27 PM Full Code 09/17/2010 5:19 PM 09/18/2010 8:26 AM Full Code 01/20/2010 6:06 AM 01/20/2010 3:18 PM Care Teams Terminologist Relationship Specialty Start Date End Date Joseph Badillo MD [address] [facility] [place] [id number] PCP - General Family Practice 02/04/19
[2023-07-24 15:19] LABS: SARS PCR* Negative SARS-CoV-2 (Negative)
== END 2023-07-24 10:19 | disposition home or self-care (01) ==
PROVIDERS: PCP Family Medicine; Visit Provider Family Medicine
DX: J02.9 Acute pharyngitis, unspecified (principal)
CPT/HCPCS: 87635

== ENCOUNTER 2024-04-12 08:16 | Outpatient (CLI) | payer MEDICARE, BC, SELFPAY ==
--- OUTSIDE RECORDS SUMMARY | 2024-04-12 08:21 | XMS_ITS | Clinical Summary ---
Author Organization [employer] [facility] Address [place], [place] [address] Care Team Providers Care As400 Operator Name Role Phone Joseph Badillo MD Primary Care Provider Allergies Active Allergy Reactions Criticality Noted Date Comments Atorvastatin Myalgia 05/14/2007 Medications Medication Sig Dispensed Refills Start Date End Date Status aspirin 81 mg tablet Take 81 mg by mouth once daily with a meal. Active CPAPIndications:FAYE (obstructive sleep apnea) CPAP machine for home use,Frequency of use: Daily 1 unit 12/05/2016 Active omeprazole (PRILOSEC) 40 mg Delayed-Release [...] once daily before a meal. 30 tablet 08/06/2019 Active oxybutynin XL (DITROPAN XL) 5 [...] 05/17/2007 Hyperlipidemia 05/17/2007 Carpal tunnel syndrome 05/17/2007 Overview (05/17/2007): Bilateral Pulmonary emboli Resolved Problems Problem Noted Date Diagnosed Date Resolved Date Acute renal failure 09/17/2010 03/10/20 12 Immunizations Name Administration Dates Next Due AMB [...] Comments Blood Pressure 118/68 08/11/2018 10:29 AM ANIMAL TECH Pulse 72 08/11/2018 10:29 AM ANIMAL TECH Temperature 36.1 ??C (97 ??F) 08/11/2018 10: 29 AM ANIMAL TECH Respiratory Rate 20 08/11/2018 10:2 9 AM ANIMAL TECH Oxygen Saturation 98% 08/11/2018 10: 29 AM ANIMAL TECH Inhaled Oxygen Concentration - - Weight 91.5 kg (201 lb 11.2 oz) 019 10:29 AM ANIMAL TECH Height 172.7 cm (5' 8) 08/11/2018 10:2 9 AM ANIMAL TECH Body Mass Index 30.67 08/11/2018 10:29 AM ANIMAL TECH Plan of Treatment Health Maintenance Due Date Last Done Comments Hepatitis C screening for ag e 18-79 [...] 01/16/2023 01/16/2018, 10/03/2016, 06/27/2015, Additional history exists COVID-19 vaccine series ( season) 2024 05/21/2023, 02/13/2023, 03/25/2022, Additional history exists Influenza for age 65+ 03/14/2024 04/29/2018 , 04/13/2017, 08/05/2016, Additional history exists Tdap Completed 03/11/2010 Medical Devices Implanted Type Area Natural Resource Officer Device Identifier Shelf Expiration Date Model / Serial / Lot Stent Prcflx [id number] Hydpls - [id number] Implanted:Qty: 1 on 09/18/2010 at [facility] Left: Ureter BSC Urology 03/21/2013 [id number] / / [id number] Description:please see impla nt sheet Procedures Procedure Name Priority Date/Time Associated Diagnosis Comments LIPID PANEL W REFLEX MEASURED LDL Routine 01/16/2018 4:15 PM CDT Hyperlipidemia, unspecified hyperlipidemia type COLONOSCOPY SCREENING Routine 09/12/2008 Special Screening for Malignant Neoplasms, Colon from Last 3 Months or Most Recently Relevant to Health Maintenance Results * (ABNORMAL) LIPID PANEL W REFLEX MEASURED LDL (01/16/2018 4:15 PM CDT) CHOLESTEROL,TOTAL 211(H) 100 - 199 mg/dL 01/16/2018 6:09 PM CDT [facility] TRIGLYCERIDES 189(H) <150 mg/dL 01/16/2018 6:09 PM CDT [facility] HDL CHOLESTEROL 42 >40 mg/dL 8 6:09 PM CDT [facility] NON-HDL CHOLESTEROL 169(H) <145 mg/dl 01/16/2018 6:09 PM CDT [facility] CHOL/HDL RATIO 5.02(H) <4.50 01/16/2018 6:09 PM CDT [facility] LDL CHOLESTEROL 131(H) <=130 mg/dL 01/16/2018 6:09 PM CDT [facility] PROVIDER ORDERED STATUS RANDOM 01/16/2018 6:09 PM CDT [facility] Blood BLOOD SPECIMEN / Unknown Venipuncture / Unknown 01/16/2018 4:15 PM CDT 01/16/2018 4:15 PM CDT Lan Perry MD CHEMISTRY Performing Organization Address City/State/[facility] [place] [address] * COLONOSCOPY SCREENING (09/12/2008) Lan Perry MD GI PROCEDURE ORD from Last 3 Months or Most Recently Relevant to Health Maintenance Advance Directives Documents on File Type Date Recorded 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 Healthcare Directive 05/05/2013 8:47 AM H EALTHCARE DIRECTIVE, 05/04/2013 * Full Code (Latest Code Status on File) Date Activated Date Inactivated Comments 06/15/2012 3:16 PM 06/16/2012 4:36 PM * Full Code Date Activated Date Inactivated Comments 09/26/2010 7:16 AM 09/26/2010 1:55 PM * Full Code Date Activated Date Inactivated Comments 09/18/2010 8:26 AM 09/19/2010 5:27 PM * Full Code Date Activated Date Inactivated Comments 09/17/2010 5:19 PM 09/18/2010 8:26 AM * Full Code Date Activated Date Inactivated Comments 01/20/2010 6:06 AM 01/20/2010 3:18 PM Care Teams As400 Operator Relationship Specialty Start Date End Date Joseph Badillo MD [address] [place] [address] PCP - General Family Practice 02/04/19
== END 2024-04-12 08:17 | disposition home or self-care (01) ==
PROVIDERS: PCP Family Medicine; Visit Provider Family Medicine
DX: E78.2 Mixed hyperlipidemia (principal); I10 Essential (primary) hypertension; R97.20 Elevated prostate specific antigen [PSA]; R41.3 Other amnesia; Z12.5 Encounter for screening for malignant neoplasm of prostate; Z13.29 Encounter for screening for other suspected endocrine disorder
CPT/HCPCS: 80048; 80061; 84153; 84443; 84460

== ENCOUNTER 2025-01-17 15:18 | Outpatient (CLI) | payer MEDICARE, BC, SELFPAY | END 2025-01-17 15:19 | disposition home or self-care (01) | PROVIDERS: PCP Family Medicine; Visit Provider Family Medicine | DX: M25.561 Pain in right knee (principal); I10 Essential (primary) hypertension; R53.83 Other fatigue | CPT/HCPCS: 80048; 84443; 85025 ==

== ENCOUNTER 2025-05-06 08:29 | Outpatient (CLI) | payer MEDICARE, BC, SELFPAY | END 2025-05-06 08:30 | disposition home or self-care (01) | PROVIDERS: PCP Family Medicine; Visit Provider Family Medicine | DX: R97.20 Elevated prostate specific antigen [PSA] (principal); I10 Essential (primary) hypertension; E78.2 Mixed hyperlipidemia | CPT/HCPCS: 80048; 80061; 84153; 84460 ==

== ENCOUNTER 2025-05-23 09:00 | Outpatient (CLI) | payer MEDICARE, BC, SELFPAY ==
--- NOTE | 2025-05-23 09:15 | MR_ITS ---
EXAM: MR PROSTATE WITHOUT AND WITH CONTRAST CLINICAL INFORMATION: Elevated PSA. COMPARISON: None. TECHNICAL INFORMATION: Examination was performed on a 1.5T magnet. High- resolution T1 axial, T2 axial, T2 FSE sagittal and T2 FSE coronal images were obtained through the prostate gland and seminal vesicles. Diffusion images were obtained in the axial plane. 19 mL of Dotarem were injected with dynamic enhanced images of the prostate gland in the axial plane. T1 fat saturation sagittal and coronal images were obtained postinjection. Images were analyzed with 3-D postprocessing online under concurrent physician supervision using a separate [employer] workstation. INTERPRETATION: The prostate gland measures 5.6 x 5.6 x 5.2 cm (TV x AP x SI) for an estimated volume of 78 cc. Transitional and central zones: There is moderate glandular and stromal hyperplasia with well encapsulated BPH nodules (PI-RADS 2). No focal CZ/TZ lesions concerning for clinically significant adenocarcinoma. Peripheral zones: No focal PZ lesions concerning for clinically significant adenocarcinoma (PI-RADS 1). Pelvis: No julio c transcapsular disease. Neurovascular bundles and seminal vesicles appear intact. No pelvic lymphadenopathy or evident bone marrow disease. CONCLUSION: Moderate prostatomegaly with stigmata of BPH. No suspicious (PI-RADS 3, 4, or 5) lesions identified. No julio c transcapsular, francisco, or skeletal disease in the pelvis. PI-RADS Assessment Categories: Score 1 = very low; clinically significant disease highly unlikely Score 2 = low; clinically significant disease is unlikely Score 3 = intermediate; clinically significant disease is equivocal Score 4 = high; clinically significant disease is likely Score 5 = very high; clinically significant disease is highly likely Electronically signed on 05/24/2025 12:11:00 PM by Aakash Medina M.D.
== END 2025-05-23 09:01 | disposition home or self-care (01) ==
LOC: MRI 09:01
PROVIDERS: PCP Family Medicine; Visit Provider Family Medicine
DX: R97.20 Elevated prostate specific antigen [PSA] (principal)
CPT/HCPCS: 72197; A9575